=== PATIENT | female | born 1950 | race Caucasian/White ===

== ENCOUNTER 2023-02-18 03:27 | Observation (INO) | payer MEDICARE, SELFPAY ==
[2023-02-18] VITALS (16 sets, daily range): BP systolic 143–184; BP diastolic 71–113; PULSE 59–78; RESP 14–23; TEMP 36.7–37.1; O2SAT 94–99; BMI 18.1
--- NOTE | 2023-02-18 03:33 | CTR_ITS ---
PROCEDURE INFORMATION: Exam: CT Head Without Contrast Exam date and time: 02/18/2023 3:28 AM Age: 72 years old Clinical indication: Stroke-like symptoms; Other: Right side weakness; Additional info: Symptoms of acute stroke TECHNIQUE: Imaging protocol: Computed tomography of the head without contrast. Radiation optimization: All CT scans at this facility use at least one of these dose optimization techniques: automated exposure control; mA and/or kV adjustment per patient size (includes targeted exams where dose is matched to clinical indication); or iterative reconstruction. Other technique: STROKE PROTOCOL was implemented. REPORTING DATA: Count of CT and Cardiac NM exams in prior 12 months: This patient has received 0 known CTs and 0 known cardiac nuclear medicine studies in the 12 months prior to the current study. COMPARISON: No relevant prior studies available. RADIATION DOSE METRICS: Total DLP (mGy-cm): 1064.08 FINDINGS: Brain: No focal hemorrhage or midline shift is identified. The ventricles and parenchyma show moderate atrophy and chronic bicerebral white matter ischemic change. Cerebral ventricles: No ventriculomegaly or evidence of hydrocephalus. Paranasal sinuses: Severe likely chronic right maxillary sinus opacification. Mastoid air cells: Visualized mastoid air cells are well aerated. Bones/joints: No displaced skull fracture is noted. Soft tissues: Unremarkable. Vasculature: Diffuse vascular calcifications are present. CT/CT head thrombolytic [id number] IMPRESSION: 1. No acute intracranial abnormality. 2. Moderate age-related changes. 3. Severe likely chronic right maxillary sinus opacification. ASSESSMENT: ASPECTS ([place] Stroke Program Early CT Score) is 10.
--- NOTE | 2023-02-18 03:33 | ECG_ITS ---
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 Measurements Intervals [place] Rate: 70 P: 77 NH: 140 QRS: 67 QRSD: 86 T: 46 QT: 357 QTc: 387 Interpretive Statements SINUS RHYTHM POSSIBLE LEFT ATRIAL ENLARGEMENT [-0.1mV P-WAVE IN V1/V2] No previous ECG available for comparison Electronically Signed On 02-18-2023 8:51:20 HOTEL MAINTENANCE TECHNICIAN by Geovanni Suarez M.D. [id number] f
--- NOTE | 2023-02-18 03:33 | XRR_ITS ---
PROCEDURE INFORMATION: Exam: XR Chest Exam date and time: 02/18/2023 3:39 AM Age: 72 years old Clinical indication: Other: CVA TECHNIQUE: Imaging protocol: Radiologic exam of the chest. Views: 1 view. COMPARISON: No relevant prior studies available. FINDINGS: Lungs: [id number] COPD No consolidation. Pleural spaces: Unremarkable. No pleural effusion. No pneumothorax. Heart/Mediastinum: Unremarkable. No cardiomegaly. Advanced diffuse vascular calcification noted. Bones/joints: Mild scoliosis. XR/XR chest 1V portable [id number] IMPRESSION: No acute findings.
--- NOTE | 2023-02-18 03:41 | W.ED.NEUROSD ---
HPI - Neuro Symptoms/Deficit General: Chief Complaint: Neuro Symptoms/Deficit Stated Complaint: possible stroke Time Seen by Provider: 02/18/23 03:35 History of Present Illness: Patient presented to the ER by EMS with complaints of strokelike symptoms. Patient has right-sided weakness and right facial drooping. patient's last known well was approximately 10 PM last night or approximately 5 and half hours ago Approximately 2 a.m. patient got up to use the restroom noticed her right side was weak and fell. She called for her roommate to eventually called EMS and they come pick her up. Patient had right-sided facial drooping and right-sided weakness when EMS arrived. A stroke alert was called. Review of Systems General: Reports: 10 or more systems reviewed and unremarkable except in HPI and below NIH stroke score NIHSS: Level Of Consciousness - 1a: 0 Level Of Consciousness Questions - 1b: Both Correct Level Of Consciousness Commands - 1c: Both Correct Best Gaze - 2: Normal Visual Stephenson - 3: No Visual Loss Facial Palsy - 4: Minor Paralysis Motor Arm Right - 5: Effort Against [place] Motor Arm Left - 5: No Drift Motor Leg Right - 6: Effort Against [place] Motor Leg Left - 6: No Drift Best Language - 9: No Aphasia Dysarthia - 10: Mild/Moderate Dysarthia Extinction And Inattention - 11: 0 Physical Exam Const: COMMON NORMALS: no acute distress, average body habitus, patient oriented x3, no limitations, healthy appearing, alert and well nourished HENMT: COMMON NORMALS: normocephalic, atraumatic, hearing grossly normal bilaterally, external ears normal, Normal external nose present, moist oral mucous membranes and oropharynx normal HEAD & SCALP: normocephalic and atraumatic NOSE: Normal external nose present EXTERNAL EAR: Yes external ears normal Eye: COMMON NORMALS: Equal, round and reactive pupils present, EOMs intact bilaterally, conjunctivae normal and no scleral icterus CONJUNCTIVA: Yes conjunctivae normal PUPIL: Yes Equal, round and reactive pupils present Neck/C-Spine: COMMON NORMALS: no JVD Chest: COMMONS NORMALS: normal inspection of the chest and normal palpation of entire chest wall Resp: COMMON NORMALS: normal respiratory effort, No retractions, No use of accessory muscles and clear to auscultation bilaterally AUSCULTATION: clear to auscultation bilaterally Cardio: COMMON NORMALS: no JVD, regular rate, regular rhythm, S1 normal heart sound present, S2 normal heart sound present, No gallops present (Cardio), No clicks present (Cardio), No murmurs present (Cardio) and No rub (Cardio) RATE: regular rate RHYTHM: regular rhythm HEART SOUNDS: S1 normal heart sound present and S2 normal heart sound present GI: COMMON NORMALS: Normal to inspection, nondistended, normoactive bowel sounds present, Soft to palpation, non-tender, No hepatosplenomegaly present and no masses PALPATION: Yes Soft to palpation and Yes No hepatosplenomegaly present Neuro: COMMON NORMALS: patient oriented x3 SENSORIUM/ORIENTATION: Yes alert OTHER: Patient has right facial droop, right upper and lower extremity weakness, mild distal R3 a, Course Vital Signs: Vital signs: Vital Signs Temperature 98.2 F 02/18/23 03:31 Pulse Rate 71 02/18/23 04:15 Respiratory Rate 20 H 02/18/23 04:15 Blood Pressure 184/71 02/18/23 04:10 Pulse Oximetry 98 02/18/23 04:15 Oxygen Delivery Me thod Room Air 02/18/23 04:15 MDM - Neuro Symptoms/Deficit Medical Decision Making Discussed case with Dr. Bender who says she is outside the window for tPA/TNKase patient will have a CT T angio of the head and neck performed and if it is negative for large vessel occlusion will be admitted to the hospitalist for further evaluation and treatment. Differential Diagnosis Likely cerebrovascular accident; Unlikely carpal tunnel syndrome, convulsions, delirium, subarachnoid hemorrhage, peripheral neuropathy, multiple sclerosis or transient cerebral ischemia Medical Records I reviewed the patient's medical records. Lab Data I reviewed the patient's lab results. 02/18/23 03:45 02/18/23 03:45 Radiology Impressions Chest X-Ray 02/18/23 03:33 IMPRESSION: No acute findings. Head CT 02/18/23 03:33 IMPRESSION: 1. No acute intracranial abnormality. 2. Moderate age-related changes. 3. Severe likely chronic right maxillary sinus opacification. ASSESSMENT: ASPECTS ([place] Stroke Program Early CT Score) is 10. Laboratory Results WBC 7.11 10^3/uL (3.29-11.43) 02/18/23 03:45 RBC 4.60 10^6/uL (3.85-5.65) 02/18/23 03:45 Hgb 14.60 g/dL (11.27-16.99) 02/18/23 03:45 Hct 43.8 % (36-47) 02/18/23 03:45 MCV 95.2 fl (85-98) 02/18/23 03:45 MCH 31.7 pg (27-33) 02/18/23 03:45 MCHC 33.3 g/dL (30-55) 02/18/23 03:45 RDW 13.4 % (12.1-15.1) 02/18/23 03:45 Plt Count 266 10^3/cmm (157-399) 02/18/23 03:45 MPV 10.1 fL (7.4-10.4) 02/18/23 03:45 Neut % (Auto) 76.1 % 02/18/23 03:45 Lymph % (Auto) 15.2 % 02/18/23 03:45 [place] % (Auto) 4.9 % 02/18/23 03:45 Eos % (Auto) 3.0 % 02/18/23 03:45 Baso % (Auto) 0.7 % 02/18/23 03:45 Neut # (Auto) 5.41 10^3/uL (1.8-7.7) 02/18/23 03:45 Lymph # (Auto) 1.1 10^3/uL (0.8-4.8) 02/18/23 03:45 [place] # (Auto) 0.4 10^3/uL (0.2-0.9) 02/18/23 03:45 Eos # (Auto) 0.2 10^3/uL (0.0-0.8) 02/18/23 03:45 Baso # (Auto) 0.1 10^3/uL (0.0-0.1) 02/18/23 03:45 Nucleated RBC % (auto) 0 % 02/18/23 03:45 Nucleated RBCs # 0.0 /100WBC 02/18/23 03:45 PT 11.10 SECONDS (12.1-14.9) L 02/18/23 03:45 INR 0.78 (0.8-1.2) L 02/18/23 03:45 APTT 23.6 SECONDS (23.9-36.7) L 02/18/23 03:45 Sodium 139 mmol/L (136-145) 02/18/23 03:45 Potassium 4.2 mmol/L (3.5-5.1) 02/18/23 03:45 Chloride 100 mmol/L (98-107) 02/18/23 03:45 Carbon Dioxide 28 mmol/L (22-29) 02/18/23 03:45 Anion Gap 15.2 (5-19) 02/18/23 03:45 BUN 11 mg/dL (8-23) 02/18/23 03:45 Creatinine 0.6 mg/dL (0.5-0.9) 02/18/23 03:45 GFR Calculation Not Reportable 02/18/23 03:45 Glucose 87 mg/dL (65-115) 02/18/23 03:45 Calculated Osmolality 287 mOsm/kg (285-295) 02/18/23 03:45 Calcium 9.8 mg/dL (8.5-10.5) 02/18/23 03:45 Magnesium 2.2 mg/dL (1.7-2.3) 02/18/23 03:45 Total Bilirubin 0.2 mg/dL (0.15-1.2) 02/18/23 03:45 AST 35 U/L (0-32) H 02/18/23 03:45 ALT 33 U/L (0-33) 02/18/23 03:45 Alkaline Phosphatase 97 U/L (35-105) 02/18/23 03:45 Total Protein 7.7 g/dL (6.6-8.7) 02/18/23 03:45 Albumin 4.7 g/dL (3.5-5.2) 02/18/23 03:45 Globulin 3.0 g/dL (1.3-4.6) 02/18/23 03:45 TSH 10.47 uIU/mL (0.27-4.20) H 02/18/23 03:45 Urine Color Colorless (Yellow) 02/18/23 04:04 Urine Appearance Clear (CLEAR) 02/18/23 04:04 Urine pH 7 (5-7) 02/18/23 04:04 Ur Specific [place] 1.010 (1.005-1.030) 02/18/23 04:04 Urine Protein Neg (Negative) 02/18/23 04:04 Urine Glucose (UA) Norm (Normal) 02/18/23 04:04 Urine Ketones Negative (Negative) 02/18/23 04:04 Urine Blood Neg (Negative) 02/18/23 04:04 Urine Nitrate Negative (Negative) 02/18/23 04:04 Urine Bilirubin Neg (Negative) 02/18/23 04:04 Urine Urobilinogen Neg mg/dL (Negative) 02/18/23 04:04 Ur Leukocyte Esterase Negative (Negative) 02/18/23 04:04 Urine Opiates Screen Negative ng/mL (Negative) 02/18/23 04:04 Ur Barbiturates Screen Negative ng/mL (Negative) 02/18/23 04:04 Ur Phencyclidine Scrn Negative ng/mL (Negative) 02/18/23 04:04 Ur Amphetamines Screen Negative ng/mL (Negative) 02/18/23 04:04 U Benzodiazepines Scrn Negative ng/mL (Negative) 02/18/23 04:04 Urine Cocaine Screen Negative ng/mL (Negative) 02/18/23 04:04 U Marijuana (THC) Screen Negative ng/mL (Negative) 02/18/23 04:04 All radiology interpretation(s) finalized by discharge Discharge Plan Discharge Patient Disposition: Admitted As Inpatient Clinical Impression: Cerebrovascular accident Condition: Stable Coding Level of Care Code ED [place] Manager for Joy Persaud
[2023-02-18 03:53] LABS: Basophils # 0.1 10^3/uL (0.0-0.1); Basophils % 0.7 %; Eosinophils # 0.2 10^3/uL (0.0-0.8); Hematocrit 43.8 % (36-47); Lymphocytes # 1.1 10^3/uL (0.8-4.8); Lymphocytes % 15.2 %; Mean Corpuscular HGB Conc 33.3 g/dL (30-55); Mean Corpuscular Hemoglobin 31.7 pg (27-33); Mean Corpuscular Volume 95.2 fl (85-98); Mean Platelet Volume 10.1 fL (7.4-10.4); Monocytes # 0.4 10^3/uL (0.2-0.9); Monocytes % 4.9 %; Neutrophils # 5.41 10^3/uL (1.8-7.7); Neutrophils % 76.1 %; Nucleated Red Blood Cells % 0 %; Platelet Count 266 10^3/cmm (157-399); Red Cell Distribution Width 13.4 % (12.1-15.1); White Blood Count 7.11 10^3/uL (3.29-11.43)
[2023-02-18 04:03] LABS: INR 0.78 (0.8-1.2)
[2023-02-18 04:04] LABS: Partial Thromboplastin Time 23.6 SECONDS (23.9-36.7)
[2023-02-18 04:10] LABS: Add Urine Microscopic? NO; Charge for UA Resulting for Rev
[2023-02-18 04:13] LABS: Blood Urine Neg (Negative); Glucose Urine UA Norm (Normal); Ketones Urine Negative (Negative); Protein Urine Neg (Negative); Urine Appearance Clear (CLEAR); Urine Color Colorless (Yellow); pH Urine 7 (5-7)
[2023-02-18 04:14] LABS: Bilirubin Urine Neg (Negative); Leukocyte Esterase Urine Negative (Negative); Nitrate Urine Negative (Negative); Urobilinogen Urine Neg (Negative)
[2023-02-18 04:20] LABS: Amphetamines Screen Urine Negative (Negative); Barbiturates Screen Urine Negative (Negative); Benzodiazepines Screen Urine Negative (Negative); Cocaine Screen Urine Negative (Negative); Opiate Screen Urine Negative (Negative); PCP Screen Urine Negative (Negative); THC Screen Urine Negative (Negative)
[2023-02-18 04:20] LABS: Alanine Aminotransferase 33 U/L (0-33); Albumin Level 4.7 g/dL (3.5-5.2); Alkaline Phosphatase 97 U/L (35-105); Aspartate Amino Transferase 35 U/L (0-32); Blood Urea Nitrogen 11 mg/dL (8-23); Calcium 9.8 mg/dL (8.5-10.5); Carbon Dioxide 28 mmol/L (22-29); Chloride 100 mmol/L (98-107); Creatinine Clr Calc Pharmacy 50.6969; Glucose 87 mg/dL (65-115); Magnesium 2.2 mg/dL (1.7-2.3); Osmolality Calculated 287 mOsm/kg (285-295); Sodium 139 mmol/L (136-145); Thyroid Stimulating Hormone 10.47 uIU/mL (0.27-4.20); Total Bilirubin 0.2 mg/dL (0.15-1.2); Total Protein 7.7 g/dL (6.6-8.7)
[2023-02-18 04:22] LABS: Anion Gap 15.2 (5-19); Potassium 4.2 mmol/L (3.5-5.1)
--- NOTE | 2023-02-18 04:24 | CTR_ITS ---
PROCEDURE INFORMATION: Exam: CTA Head With Contrast, Arteriography Exam date and time: 02/18/2023 4:38 AM Age: 72 years old Clinical indication: Weakness and other: CVA; Additional info: Right sided CVA symptoms TECHNIQUE: Imaging protocol: Computed tomographic angiography of the head with contrast. Exam focused on the arteries. 3D rendering (Not supervised by radiologist): MIP and/or 3D reconstructed images were created by the technologist. Radiation optimization: All CT scans at this facility use at least one of these dose optimization techniques: automated exposure control; mA and/or kV adjustment per patient size (includes targeted exams where dose is matched to clinical indication); or iterative reconstruction. Contrast material: OMNI 350; Contrast volume: 80 ml; Contrast route: INTRAVENOUS (IV); REPORTING DATA: Count of CT and Cardiac NM exams in prior 12 months: This patient has received 0 known CTs and 0 known cardiac nuclear medicine studies in the 12 months prior to the current study. COMPARISON: CT head thrombolytic [id number] 02/18/2023 3:28 AM RADIATION DOSE METRICS: Total DLP (mGy-cm): 379.27 FINDINGS: ANTERIOR CIRCULATION: Right internal carotid artery: Intracranial segment is patent with no significant stenosis. No aneurysm. Right middle cerebral artery: No occlusion or significant stenosis. No aneurysm. Right anterior cerebral artery: No occlusion or significant stenosis. No aneurysm. Left internal carotid artery: Intracranial segment is patent with no significant stenosis. No aneurysm. Left middle cerebral artery: No occlusion or significant stenosis. No aneurysm. Left anterior cerebral artery: No occlusion or significant stenosis. No aneurysm. POSTERIOR CIRCULATION: Right vertebral artery: No occlusion or significant stenosis. No aneurysm. Left vertebral artery: No occlusion or significant stenosis. No aneurysm. Basilar artery: No occlusion or significant stenosis. No aneurysm. Right posterior cerebral artery: No occlusion or significant stenosis. No aneurysm. Left posterior cerebral artery: No occlusion or significant stenosis. No aneurysm. Brain: No focal hemorrhage or midline shift identified. See same-day head CT. Cerebral ventricles: No evidence of ventriculomegaly or hydrocephalus. The ventricles seem age-appropriate. Bones/joints: Severe right maxillary sinus disease. No acute fracture. Soft tissues: Unremarkable. PROCEDURE INFORMATION: Exam: CTA Neck With Contrast Exam date and time: 02/18/2023 4:38 AM Age: 72 years old Clinical indication: Weakness and other: CVA; Additional info: Right sided CVA symptoms TECHNIQUE: Imaging protocol: Computed tomographic angiography of the neck with contrast. Exam focused on the cervical segments of the vasculature. 3D rendering (Not supervised by radiologist): MIP and/or 3D reconstructed images were created by the technologist. Radiation optimization: All CT scans at this facility use at least one of these dose optimization techniques: automated exposure control; mA and/or kV adjustment per patient size (includes targeted exams where dose is matched to clinical indication); or iterative reconstruction. Contrast material: OMNI 350; Contrast volume: 80 ml; Contrast route: INTRAVENOUS (IV); REPORTING DATA: Count of CT and Cardiac NM exams in prior 12 months: This patient has received 0 known CTs and 0 known cardiac nuclear medicine studies in the 12 months prior to the current study. COMPARISON: CT head thrombolytic [id number] 02/18/2023 3:28 AM RADIATION DOSE METRICS: Total DLP (mGy-cm): 379.27 FINDINGS: Right common carotid artery: No stenosis. No dissection or occlusion. Right internal carotid artery: No stenosis of the extracranial segment. No dissection or occlusion. Right external carotid artery: No occlusion or high-grade stenosis identififed. Left common carotid artery: No stenosis. No dissection or occlusion. Left internal carotid artery: No stenosis of the extracranial segment. No dissection or occlusion. Left external carotid artery: No occlusion or high-grade stenosis identififed. Right vertebral artery: No stenosis. No dissection or occlusion. Left vertebral artery: No stenosis. No dissection or occlusion. Soft tissues: No significant soft tissue swelling or other acute finding noted. Bones/joints: No acute fracture. Age-appropriate DJD. CT/CT angio headneck* [id number] IMPRESSION: No large vessel stenosis or occlusion. IMPRESSION: No stenosis or occlusion. REFERENCES: NASCET CRITERIA. The degree of stenosis in the cervical segment of the internal carotid artery is based on NASCET criteria. Normal is no stenosis. Mild is less than 50% stenosis. Moderate is 50-69% stenosis. Severe is 70% to 99% stenosis. Total occlusion is no detectable patent lumen.
[2023-02-18] MEDS: iohexol 350 mg/mL 500 mL Btl (per mL) IV (04:53)
--- NOTE | 2023-02-18 05:43 | P.HP_ITS ---
Providers/Chief Complaint Admitting Physician: Bebeto Mclaughlin Chief Complaint: possible stroke History of Present Illness 72-year-old lady with last known well around 10 PM last night, around 1:30 AM she got up to use the restroom, noticed weakness on the right side and fell down. ?Her roommate subsequently called EMS.? In ER with also noted right facial droop, with concern for stroke was assessed by neurology but was found outside the safe window for TNK.? CT angiogram head and neck was obtained, noted no large vessel occlusion. Review of Systems Const: Denies: fever(s), chills, body aches or malaise ENMT: Denies: throat pain, oral sores or ear or mastoid pain Card: Denies: chest pain, edema, pre-syncope or dyspnea on exertion Resp: Denies: dyspnea, productive cough, change in phlegm color or hemoptysis GI: Denies: abdominal pain, nausea, vomiting, diarrhea, constipation, hematochezia or melena : Denies: flank pain, urinary frequency or hematuria Musc: Denies: back pain, joint swelling or joint redness Skin/Breast: Denies: rash or new lesions Neuro: Reports: weakness in extremities and difficulty walking; Denies: headache(s), numbness in extremities, dizziness, confusion or seizure-like activity PFSH Acute PFSH: Medical History No significant past medical history Social History Smoking and tobacco/nicotine status: former use of tobacco/nicotine Vitals/I&O/Wt Last Vital Signs Temp 98.2 F 02/18/23 03:31 Pulse 69 02/18/23 05:15 Resp 19 H 02/18/23 05:15 BP 166/92 02/18/23 05:15 Pulse Ox 97 02/18/23 05:15 O2 Del Method Room Air 02/18/23 05:15 Weight last 48 hrs Weight 48.081 kg Physical Exam Const: COMMON NORMALS: patient oriented x3 and alert GENERAL APPEARANCE: cooperative ORIENTATION/CONSCIOUSNESS: Yes awake HENMT: COMMON NORMALS: oropharynx normal Neck/C-Spine: COMMON NORMALS: no JVD Resp: COMMON NORMALS: normal respiratory effort and clear to auscultation bilaterally AUSCULTATION: clear to auscultation bilaterally Cardio: COMMON NORMALS: no JVD, regular rhythm, S1 normal heart sound present, S2 normal heart sound present and No murmurs present (Cardio) RHYTHM: regular rhythm HEART SOUNDS: S1 normal heart sound present and S2 normal heart sound present GI: COMMON NORMALS: Normal to inspection, nondistended, normoactive bowel sounds present, Soft to palpation and non-tender PALPATION: Yes Soft to palpation Extremity: COMMON NORMALS: no joint enlargement and no pedal edema Neuro: COMMON NORMALS: patient oriented x3 SENSORIUM/ORIENTATION: Yes alert OTHER: She is awake, alert, interacting. Noted right-sided facial droop with moderately slurred speech. No difficulty with horizontal tracking. Visual edwards appear full to confrontation, without visual extinction. Sensation symmetrical upper body, does report somewhat decreased sensation on the left leg compared to the right. No sensory extinction. Right-sided weakness, unable to elevate right arm. Some effort against gravity in the right leg. Skin: COMMON NORMALS: no rashes or lesions noted GENERAL SKIN EXAM: no rashes or lesions noted Data 02/18/23 03:45 02/18/23 03:45 A&P Assessment and plan (1) Cerebrovascular accident: Acute CVA with right-sided facial droop, right-sided weakness, unable to ambulate, fell at home. Noted moderate dysarthria. N.p.o. for now pending ST assessment. Aspirin CT for now. Start statin once able to resume oral intake. Assess lipid profile. PT, OT, ST evaluation. Permissive hypertension at this time. Monitor blood pressures. Unknown whether may have some undiagnosed hypertension, though currently elevated blood pressures likely due to CVA. Reviewed vitals, CBC, INR, CMP, TSH, UA, UDS, reviewed ER documentation, discussed with ER physician. Reviewed CT head, reviewed CT angiogram head and neck. MRI brain to further assess extent of the CVA EKG on my interpretation without arrhythmia, small Q waves inferiorly. Monitor on telemetry. Consider microcomputer technician at discharge. Additional assessment with echo bubble study. Pending neurology documentation, please review for additional recommendations. Follow-up with neurology after discharge. Case management consultation for disposition planning, PCP. Qualifiers: CVA mechanism: unspecified Qualified Code(s): I63.9 - Cerebral infarction, unspecified (2) Elevated TSH: Assess for possible hypothyroidism. Reviewed TSH, noted 10.47. Check free T4. She states she gets cold easily, but denies other symptoms of hypothyroidism. Cardiac monitoring. Plan Former smoker Attestations Medical Necessity Statement*: Placed in observation for additional assessment management of acute CVA. Diagnoses Cerebrovascular accident I63.9 CVA mechanism: unspecified Elevated TSH R79.89
--- NOTE | 2023-02-18 05:59 | PC.NURSE ---
pt pt states she doesn't want me to call her at this time. she states she wants to wait for him to call here since he is disabled.
--- NOTE | 2023-02-18 06:21 | USCV_ITS ---
Yesenia Otoole Age: 72 Gender: F : 1950 Exam Date: 02/18/2023 11:57 Ordering Phys: Bebeto Mclaughlin MD Technologist: Kade Torre Exam Location: [facility] [place] Indication: cva BP: 134 / 72 HR: 61 Rhythm: Sinus Technical Quality: Adequate MEASUREMENTS (Male / Female) Normal Values 2D ECHO LV Diastolic Diameter PLAX 3.4 cm 4.2 - 5.9 / 3.9 - 5.3 cm LV Systolic Diameter PLAX 2.1 cm IVS Diastolic Thickness 1.1 cm 0.6 - 1.0 / 0.6 - 0.9 cm IVS Systolic Thickness 1.8 cm LVPW Diastolic Thickness 1.0 cm 0.6 - 1.0 / 0.6 - 0.9 cm LVPW Systolic Thickness 1.4 cm LVOT Diameter 2.0 cm LV Ejection Fraction 2D Teich 70.9 % LV Ejection Fraction MOD 2C 70.7 % LV Ejection Fraction 2C AL 70.4 % LA Diameter 3.3 cm M-MODE Aortic Annulus Diameter 3.3 cm LA Ao Ratio MM 1.1 MV E Point Septal Separation 1.6 cm DOPPLER AV Peak Velocity 132.0 cm/s LVOT Peak Velocity 85.0 cm/s AV Area Cont Eq vti 1.9 cm squared AV Area Cont Eq pk 2.1 cm squared MV Area PHT 3.3 cm squared Mitral E to A Ratio 1.1 MV E' Velocity 36.0 cm/s Mitral E to MV E' Ratio 6.7 Mitral E to LV E' Lateral Ratio 6.0 Mitral E to LV E' Septal Ratio 7.8 TR Peak Velocity 103.0 cm/s TR Peak Gradient 4.2 mmHg FINDINGS Left Ventricle Normal left ventricular size and systolic function, EF 76 %. No regional wall motion abnormalities. Right Ventricle The right ventricle is normal in size and function. Right Atrium No evidence of any live right to left shunt, based on the saline contrast injection Left Atrium The left atrium is normal in size. Mitral Valve Thickened mitral valve. Aortic Valve Thickened aortic valve. Tricuspid Valve Trace to mild tricuspid valve regurgitation. Pulmonic Valve No gross abnormalities noted Pericardium Normal pericardium without effusion. Aorta Normal aortic annulus size. IVC Normal inferior vena cava. CONCLUSIONS Normal left ventricular size and systolic function, EF 76 %. No regional wall motion abnormalities. Thickened aortic and mitral valves. Trace to mild tricuspid valve regurgitation. There is no pericardial effusion. There are no intracardiac masses. No evidence of [id number] shunt, based on the saline contrast injection Dr Denisse Baez MD FAC (Electronically Signed) Final Date: 19 February 2023 21:11 S
--- NOTE | 2023-02-18 06:21 | MR_ITS ---
WS: [id number] MRI HEAD WITHOUT CONTRAST TECHNIQUE: Sagittal T1, T2 axial, T2 axial FLAIR, axial and coronal T1 images, axial susceptibility w eighted imaging, axial diffusion weighted images, and coronal T2 images were obtained. CLINICAL INFORMATION: cva COMPARISON: CT abdomen 723 FINDINGS: Small area of restricted diffusion involving the posterior limb LEFT internal capsule at the lateral aspect of the thalamus measuring 8 mm consistent with acute ischemia. No other foci of restricted dif fusion. Mild supratentorial small vessel changes. Moderate parenchymal volume loss. Normal posterior fossa. N ormal vascular flow voids at the skull base. No extra-axial fluid collections. No evidence of mass or mass effect. Partial opacification of the paranasal sinuses. Complete opacification of the RIGHT maxillary sinus with inspissated secretions. Opacification RIGHT ostiomeatal unit. Suggestion of a T2 hyperintense polypoid lesion RIGHT maxillary sinus measuring christelle roximately 2.3 x 1.6 cm extending into the maxillary infundibulum with chronic opacification. Recomme nd ENT consultation and further evaluation with endoscopy Normal posterior nasopharynx. Mastoid air cells are well aerated. Normal parapharyngeal fat. Moderate symmetric atrophy temporal lobes and hippocampal formations. Normal optic chiasm and pituitary infun dibulum. No hemosiderin on susceptibility-weighted images. IMPRESSION: 1. Small 8 mm focus of acute ischemia in the posterior limb LEFT internal capsule. No significant ma ss effect or midline shift. Tiny amount of edema. 2. No other foci of restricted diffusion. 3. Mild small vessel changes. Moderate parenchymal volume loss. 4. Inspissated secretions RIGHT maxillary sinus with opacification of the RIGHT ostiomeatal unit wit h a central maxillary polypoid lesion. 5. Central polypoid lesion RIGHT maxillary sinus measures approximately 2.3 x 1.6 cm extending into the maxillary infundibulum. Recommend ENT consultation and further evaluation with endoscopy
[2023-02-18] MEDS: heparin 5,000 unit/mL INJ 1 mL 5000 UNIT SUBCUT ×2 (06:28→17:53)
[2023-02-18 06:29] LABS: Glucose Point of Care 116 mg/dL (70-110)
[2023-02-18 06:57] LABS: Chol HDL Ratio 2.69 mg/dL (0.0-4.40); Cholesterol 242 mg/dL (0-200); HDL Cholesterol 90 mg/dL (60-100); LDL Cholesterol Calculated 132 mg/dL (50-129); Triglycerides 99 mg/dL (0-150); VLDL Cholestrol Calculation 20 mg/dL (0-30)
[2023-02-18 07:04] LABS: Free T4 Free Thyroxine 1.13 ng/dL (0.82-1.77)
[2023-02-18] MEDS: aspirin 300 mg Supp PR (07:10)
--- NOTE | 2023-02-18 07:47 | P.CONIM_ITS ---
Providers/Reason For Consult Consulting Physician/Specialty*: Lamonte Bender MD neurology and epilepsy Reason for Consult*: Code stroke 02/18/2023 at 3:18 AM emergency room bed #10 Attending Physician: Eric Yeung MD History of Present Illness History of Present Illness Yesenia Otoole is a 72 year old female who was reported to experienced right- sided weakness involving her face arm and leg. Patient last known well was 10 PM on 02/17/2023. Therefore, patient was not a candidate for thrombolytics and no tenecteplase was administered. NIH score = 3/4 by emergency room physician. Head CT scan was reported to be negative for any acute findings. CT angiogram of the head and neck was negative for any large vessel occlusion. Patient was admitted to [facility] floor room 259 bed #2. This morning the patient is alert. She has some right-sided weakness but able to maintain the right arm and right leg against gravity. Motor testing approximate 4/5 strength in the right arm and right leg. Patient displayed some mild right lower facial weakness. Speech was clear. Past medical history: Elevated TSH Drug allergies: Unknown Outpatient medications: Unknown. Patient did report she was not taking any aspirin at home Habits: None Family history: Unknown Review of Systems General: Reports: 10 or more systems reviewed and unremarkable except in HPI and below Medications/Allergies Home Medications Medication Instructions Recorded Confirmed Last Taken Type multivitamin 1 tab PO QAM 02/18/23 02/18/23 Unknown History simethicone 80 mg chewable tablet 80 mg PO DAILY PRN bloating 02/18/23 02/18/23 Unknown History Allergies Allergy/AdvReac Type Severity Reaction Status Date / Time No Known Allergies Allergy Verified 02/18/23 07:51 Current Medications Generic Name Dose Route Start Last Admin Trade Name Freq PRN Reason Stop Dose Admin Aspirin 300 mg 02/18/23 06:21 02/18/23 07:10 Aspirin 300 Mg Supp MT 300 mg DAILY GEORGINA Administration Heparin Sodium (Porcine) 5,000 unit 02/18/23 06:21 02/18/23 06:28 Heparin 5,000 Unit/Ml Inj 1 Ml SUBCUT 5,000 unit Q12H GEORGINA Administration PFSH Acute PFSH: Medical History No significant past medical history Social History Smoking and tobacco/nicotine status: former use of tobacco/nicotine Vitals/I&O/Wt Last Vital Signs Temp 98.2 F 02/18/23 06:21 Pulse 71 02/18/23 06:21 Resp 14 02/18/23 06:21 BP 169/74 02/18/23 06:21 Pulse Ox 99 02/18/23 06:21 O2 Del Method Room Air 02/18/23 06:21 Weight last 48 hrs Weight 106 lb Physical Exam Narrative: The patient is currently alert and oriented to person place and situation. Head normocephalic. Neck supple. Cranial nerves II through XII revealed right lower facial weakness. Pupils 3 to 4 mm round reactive light and accommodation. Extraocular movements intact. Visual edwards appear to be full via confrontation. There were no nystagmus. Motor testing revealed 4/5 strength in the right arm and right leg. There was no drift against gravity. Deep tendon reflexes 2+ bilaterally. Plantar responses flexor bilaterally. There was no clonus. Sensory examination was intact to gross modalities. Throat clear. Lungs clear. Heart regular rhythm and rate. Extremities were negative for clubbing cyanosis or edema Data 02/18/23 03:45 02/18/23 03:45 A&P Assessment and plan (1) Cerebrovascular accident: Impression 1. Left subcortical versus cortical infarction. Note: Since the patient last known well was 10 PM on 02/17/2023 and code stroke was initiated at 3:18 AM on 02/18/2023, patient was outside of the thrombolytic window of 4-1/2 hours and therefore patient was not a candidate for thrombolytics and no tenecteplase was administered. 2. Elevated TSH Plan: 1. Agree with aspirin 325 mg p.o. every morning with food 2. Recommend starting lipid-lowering agent per NIH stroke protocol 3. Recommend stroke work-up per NIH stroke protocol 4. Recommend 2D echocardiogram to assess for embolic source for stroke 5. Recommend occupational therapy and physical therapy and speech therapy evaluation 6. Address elevated TSH Qualifiers: CVA mechanism: unspecified Qualified Code(s): I63.9 - Cerebral infarction, unspecified Consult Attestations Medical Necessity Statement: Patient evaluated by neurology for code stroke on 02/18/2023 Coding Level of Care Code 94583 Diagnoses Cerebrovascular accident I63.9 CVA mechanism: unspecified
--- NOTE | 2023-02-18 07:53 | PC.PHAR ---
pt states she takes no prescription medications-no meds pull up on ext med history either-pt states only takes daily multivitamin and gas x prn
[2023-02-18 12:33] LABS: Glucose Point of Care 112 mg/dL (70-110)
[2023-02-18] MEDS: atorvastatin 40 mg Tablet PO (20:26)
[2023-02-19 04:00] VITALS: BP 144/72; PULSE 65; RESP 16; TEMP 36.7; O2SAT 95
[2023-02-19 05:37] VITALS: PULSE 66
[2023-02-19] MEDS: heparin 5,000 unit/mL INJ 1 mL 5000 UNIT SUBCUT (06:12)
[2023-02-19 07:44] VITALS: BP 162/82; PULSE 65; RESP 19; TEMP 36.4; O2SAT 97
[2023-02-19] MEDS: aspirin 325 mg Tablet PO (10:02)
--- NOTE | 2023-02-19 10:12 | PM.DCS ---
Discharge Providers Date of Admission: 02/18/23 05:12 Date of Discharge: February 19, 2023 Attending Provider at Admission: Bebeto Mclaughlin Attending Provider at Discharge: Eric Yeung MD Consults: Neurology Diagnoses at Discharge Discharge Diagnosis (1) Cerebrovascular accident: Status: Acute Qualifiers: CVA mechanism: unspecified Qualified Code(s): I63.9 - Cerebral infarction, unspecified Reason for Visit Reason for Visit: possible stroke Hospital Course Hospital Course Yesenia Otoole is a 72-year-old female with a past medical history significant for tobacco use disorder in remission who presented with right-sided weakness concerning for acute stroke. Neurology was consulted. Imaging revealed acute ischemic stroke of the posterior limb of the left internal capsule. She was treated with aspirin and statin therapy. She worked with therapy with plans to establish home health after PCP appointment on 02/20/23. Of note, patient was found to have elevated TSH with normal free T4. She was not started on thyroid replacement. She is to have her thyroid function testing repeated in four weeks. Ambulatory orders have been entered. Patient is to establish with PCP on 02/20 and follow up [facility] neurology in clinic for continued care. Physical Exam Narrative: General: Patient is awake and alert. Head: Normocephalic. Atraumatic. EOM intact. Neck: No JVD. Cardiovascular: RRR. No gallops. No murmurs. Lungs: Clear to auscultation, no use of accessory muscles, no crackles or wheezes. Skin: No jaundice. No rashes. Abdomen: Normal bowel sounds, abdomen soft and nontender. Genito Urinary: Genital exam not performed since complaints not related. Rectal: Rectal exam not performed since no symptoms indicated blood loss. Extremities: No cyanosis or clubbing. Musculoskeletal: No swollen joints. Neurological: Moves all 4 extremities. Strength 4/5 in right sided extremities. No myoclonus. Discharge Data Studies Completed and Pending Completed Studies During Hospitalization Category Date Time Status CT head thrombolytic [id number] Stat Cat Scan 02/18/23 03:33 Completed CTA head neck [CT angio headneck* [id number]] Stat Cat Scan 02/18/23 04:24 Completed XR chest 1V portable [id number] Stat Exams 02/18/23 03:33 Completed MR head wo con* [id number] Routine MRI 02/18/23 06:21 Completed Pending at discharge Category Date Time Status CV. echo w/w bubble cont [id number] Routine Ultrasound 02/18/23 06:21 Taken Radiology Impressions Chest X-Ray 02/18/23 03:33 IMPRESSION: No acute findings. Head CT 02/18/23 03:33 IMPRESSION: 1. No acute intracranial abnormality. 2. Moderate age-related changes. 3. Severe likely chronic right maxillary sinus opacification. ASSESSMENT: ASPECTS ([place] Stroke Program Early CT Score) is 10. Head/Neck CTA 02/18/23 04:24 IMPRESSION: No large vessel stenosis or occlusion. IMPRESSION: No stenosis or occlusion. REFERENCES: NASCET CRITERIA. The degree of stenosis in the cervical segment of the internal carotid artery is based on NASCET criteria. Normal is no stenosis. Mild is less than 50% stenosis. Moderate is 50-69% stenosis. Severe is 70% to 99% stenosis. Total occlusion is no detectable patent lumen. Laboratory Results WBC 7.11 10^3/uL (3.29-11.43) 02/18/23 03:45 RBC 4.60 10^6/uL (3.85-5.65) 02/18/23 03:45 Hgb 14.60 g/dL (11.27-16.99) 02/18/23 03:45 Hct 43.8 % (36-47) 02/18/23 03:45 MCV 95.2 fl (85-98) 02/18/23 03:45 MCH 31.7 pg (27-33) 02/18/23 03:45 MCHC 33.3 g/dL (30-55) 02/18/23 03:45 RDW 13.4 % (12.1-15.1) 02/18/23 03:45 Plt Count 266 10^3/cmm (157-399) 02/18/23 03:45 MPV 10.1 fL (7.4-10.4) 02/18/23 03:45 Neut % (Auto) 76.1 % 02/18/23 03:45 Lymph % (Auto) 15.2 % 02/18/23 03:45 [place] % (Auto) 4.9 % 02/18/23 03:45 Eos % (Auto) 3.0 % 02/18/23 03:45 Baso % (Auto) 0.7 % 02/18/23 03:45 Neut # (Auto) 5.41 10^3/uL (1.8-7.7) 02/18/23 03:45 Lymph # (Auto) 1.1 10^3/uL (0.8-4.8) 02/18/23 03:45 [place] # (Auto) 0.4 10^3/uL (0.2-0.9) 02/18/23 03:45 Eos # (Auto) 0.2 10^3/uL (0.0-0.8) 02/18/23 03:45 Baso # (Auto) 0.1 10^3/uL (0.0-0.1) 02/18/23 03:45 Nucleated RBC % (auto) 0 % 02/18/23 03:45 Nucleated RBCs # 0.0 /100WBC 02/18/23 03:45 PT 11.10 SECONDS (12.1-14.9) L 02/18/23 03:45 INR 0.78 (0.8-1.2) L 02/18/23 03:45 APTT 23.6 SECONDS (23.9-36.7) L 02/18/23 03:45 Sodium 139 mmol/L (136-145) 02/18/23 03:45 Potassium 4.2 mmol/L (3.5-5.1) 02/18/23 03:45 Chloride 100 mmol/L (98-107) 02/18/23 03:45 Carbon Dioxide 28 mmol/L (22-29) 02/18/23 03:45 Anion Gap 15.2 (5-19) 02/18/23 03:45 BUN 11 mg/dL (8-23) 02/18/23 03:45 Creatinine 0.6 mg/dL (0.5-0.9) 02/18/23 03:45 GFR Calculation Not Reportable 02/18/23 03:45 Glucose 87 mg/dL (65-115) 02/18/23 03:45 POC Glucose 112 mg/dL (70-110) H 02/18/23 11:50 Calculated Osmolality 287 mOsm/kg (285-295) 02/18/23 03:45 Calcium 9.8 mg/dL (8.5-10.5) 02/18/23 03:45 Magnesium 2.2 mg/dL (1.7-2.3) 02/18/23 03:45 Total Bilirubin 0.2 mg/dL (0.15-1.2) 02/18/23 03:45 AST 35 U/L (0-32) H 02/18/23 03:45 ALT 33 U/L (0-33) 02/18/23 03:45 Alkaline Phosphatase 97 U/L (35-105) 02/18/23 03:45 Total Protein 7.7 g/dL (6.6-8.7) 02/18/23 03:45 Albumin 4.7 g/dL (3.5-5.2) 02/18/23 03:45 Globulin 3.0 g/dL (1.3-4.6) 02/18/23 03:45 Triglycerides 99 mg/dL (0-150) 02/18/23 03:45 Cholesterol 242 mg/dL (0-200) H 02/18/23 03:45 LDL Cholesterol, Calc 132 mg/dL (50-129) H 02/18/23 03:45 Total VLDL Cholesterol 20 mg/dL (0-30) 02/18/23 03:45 HDL Cholesterol 90 mg/dL (60-100) 02/18/23 03:45 Cholesterol/HDL Ratio 2.69 mg/dL (0.0-4.40) 02/18/23 03:45 TSH 10.47 uIU/mL (0.27-4.20) H 02/18/23 03:45 Free T4 1.13 ng/dL (0.82-1.77) 02/18/23 03:45 Urine Color Colorless (Yellow) 02/18/23 04:04 Urine Appearance Clear (CLEAR) 02/18/23 04:04 Urine pH 7 (5-7) 02/18/23 04:04 Ur Specific [place] 1.010 (1.005-1.030) 02/18/23 04:04 Urine Protein Neg (Negative) 02/18/23 04:04 Urine Glucose (UA) Norm (Normal) 02/18/23 04:04 Urine Ketones Negative (Negative) 02/18/23 04:04 Urine Blood Neg (Negative) 02/18/23 04:04 Urine Nitrate Negative (Negative) 02/18/23 04:04 Urine Bilirubin Neg (Negative) 02/18/23 04:04 Urine Urobilinogen Neg mg/dL (Negative) 02/18/23 04:04 Ur Leukocyte Esterase Negative (Negative) 02/18/23 04:04 Urine Opiates Screen Negative ng/mL (Negative) 02/18/23 04:04 Ur Barbiturates Screen Negative ng/mL (Negative) 02/18/23 04:04 Ur Phencyclidine Scrn Negative ng/mL (Negative) 02/18/23 04:04 Ur Amphetamines Screen Negative ng/mL (Negative) 02/18/23 04:04 U Benzodiazepines Scrn Negative ng/mL (Negative) 02/18/23 04:04 Urine Cocaine Screen Negative ng/mL (Negative) 02/18/23 04:04 U Marijuana (THC) Screen Negative ng/mL (Negative) 02/18/23 04:04 Vitals Last Vital Signs Temp 97.5 F L 02/19/23 07:44 Pulse 65 02/19/23 07:44 Resp 19 H 02/19/23 07:44 BP 162/82 02/19/23 07:44 Pulse Ox 97 02/19/23 07:44 O2 Del Method Room Air 02/19/23 07:44 Discharge Plan Discharge Patient Disposition: Home Health Service Condition: Stable Prescriptions: New atorvastatin 40 mg Tablet 40 mg PO BEDTIME 90 Days Qty: 90 1RF aspirin 325 mg Tablet 325 mg PO DAILY 90 Days Qty: 90 1RF Continued multivitamin Tablet 1 tab PO QAM simethicone 80 mg Tablet,Chewable 80 mg PO DAILY PRN (Reason: bloating) Discharge Orders: Discharge Order (Routine); Ordered 02/19/23 Ordered By: Eric Yeung Other Ambulatory Orders: Free T4 Free Thyroxine (Routine) Timeframe: 1 Month Facility: [facility] - Location: Lab - Main Lab Ordered By: Eric Yeung Thyroid Stimulating Hormone (Routine) Timeframe: 1 Month Facility: [facility] - Location: Lab - Main Lab Ordered By: Eric RESTREPO: Broder[place] (Order) Location: None Selected Ordered By: Eric Yeung Referrals: [facility] [Outside] - 02/20/23 1:00 pm Lamonte Bender MD [Physician] - (We have notified your physician's clinic of the need for a follow-up appointment to be scheduled. If you have not heard from them within the next 2 business days, please call them directly. You may also reach out to our onsite case manager at [phone] and she can assist you.) Discharge Diet: Advance as tolerated, Cardiac, Low Salt and Low Cholesterol Discharge Activity: Increase activity as tolerated and As per PT/OT instructions Patient Instructions: Aspirin (By mouth), Atorvastatin (By mouth), Ischemic Stroke (GEN), Opioid Safety, Stroke Stoplight Activity Restrictions/Additional Instructions: 1. Increase activity as tolerated. 2. Take medications as prescribed. 3. Establish care with PCP. Discharge Attestations Time Spent in Discharge Care*: greater than 30 min Quality Metrics Clinical Quality Measures [ No reported AMI, CVA or VTE this stay] Coding Level of Care Code Acute Code for Chg Fwd Diagnoses Cerebrovascular accident I63.9 CVA mechanism: unspecified
--- NOTE | 2023-02-19 10:49 | PC.CHAP ---
Pastoral Care Encounter/Spiritual Assessment Type of Contact [] Declined daycare assistant visit [] Patient/Family/Request visit [] Outpatient visit [] Follow-up visit [] Physician referral [] Code/Alert [x] Routine visit [] Staff referral [] Actively dying [] Patient sleeping [] Family support [] [] Out of room [] Palliative care [] [] Receiving care in room [] Pre-surgical visit [] Trauma [] Long length of stay [] ICU visit [] Other: Relational/Emotional Strength [x] Patient feels connected with others/family/visitors/staff [] Distress [] Loneliness/isolation [] Abandonment Spirituality of Patient [] Person of Amarilys [] Attends Jewish of their Amarilys [] Believes in Prayer [] Reads Bible or Taoism materials [] There are Spiritual issues to be addressed Polysomnograph Tech Interventions [x] Prayer [] Active listening [] Non-anxious presence [] Spiritual/emotional support [] Crisis/trauma care [] Spiritual counseling [] Bereavement support [] Provided bereavement packet [] Provided Bible/devotional materials [] Provided toy/stuffed animal, coloring book to patient or family member [] Provided Communion [] Anointing/[place] [] Salvation [] Completed spiritual assessment [] Other: Impact on Illness or Injury [] Angry [] Fearful [] Anxious [] Often cries [] Exhaustion [] Unable to work [] Unable to attend gnosticism [] Unable to walk/stand [] Unable to read [] Unable to drive [] Unable to eat/drink [] Unable to sleep [] Unable to be with family [] Patient intubated [] Other: Summary Time spent with patient 10 min
[2023-02-19 12:00] VITALS: BP 182/85; PULSE 52; RESP 19; TEMP 36.5; O2SAT 100
--- NOTE | 2023-02-19 13:02 | PC.SOCIAL ---
IMM Update pg 2 of IMM was not updated as patient is currently in observation status.
[2023-02-19 16:00] VITALS: BP 158/86; PULSE 65; RESP 19; TEMP 36.4; O2SAT 97
[2023-02-19 17:10] VITALS: BP 158/86; PULSE 65; RESP 19; TEMP 36.4; O2SAT 97
== END 2023-02-19 16:30 | disposition home health service (06) ==
LOC: ER 05:04 → MEDSURG 05:12
PROVIDERS: Admitting Provider Internal Medicine; Emergency Provider Emergency Medicine; Visit Provider Internal Medicine
DX: I63.9 Cerebral infarction, unspecified (principal); Z87.891 Personal history of nicotine dependence; I08.0 Rheumatic disorders of both mitral and aortic valves; R79.89 Other specified abnormal findings of blood chemistry; R94.6 Abnormal results of thyroid function studies
CPT/HCPCS: 36416; 70450; 70496; 70498; 70551; 71045; 80053; 80061; 80306; 81003; 82962; 83735; 84439; 84443; 85025; 85610; 85730; 92523; 92610; 93005; 96372; 97110; 97116; 97161; 97166; 99285; C8929; G0378; J1644; Q9967